=== PATIENT | female | born 1945 | race Caucasian/White ===

== ENCOUNTER 2018-12-22 18:56 | Inpatient (IN) ==
[2018-12-22] MEDS ORDERED: ASPIRIN 325 MG TABLET PO STA (19:36)
[2018-12-22] MEDS ORDERED: DILTIAZEM 50 MG/10 ML VIAL IV STA (19:36)
[2018-12-22] MEDS ORDERED: ENOXAPARIN 100 MG/ML SYRINGE SUBCUT STA (19:37)
[2018-12-22] MEDS ORDERED: dilTIAZem Drip 125 MG/125 ML PREMIX IV SCH ×2 (20:00→22:00)
[2018-12-22 20:08] LABS: Basophils # 0.1 10*3/uL (0.0-0.2); Basophils % 0.7 % (0.0-0.8); Eosinophils # 0.2 10*3/uL (0.0-0.87); Eosinophils % 2.3 % (0.00-10.9); Hematocrit 36.6 VOL% (35.7-47.0); Hemoglobin 11.9 GM/DL (12.0-16.0); Immature Granulocytes % 0.3 %; Immature Granulocytes Absolute 0.02 #; Lymphocytes # 2.6 10*3/uL (1.4-4.0); Lymphocytes % 37.4 % (21.3-54.2); Mean Corpuscular HGB Conc 32.5 GM/DL (32-36); Mean Corpuscular Hemoglobin 30 PG (27-34); Mean Corpuscular Volume 92.9 FL (87-102); Monocytes # 0.6 10*3/uL (0.11-0.8); Monocytes % 8.6 % (1.7-12.7); Neutrophils # 3.5 10*3/uL (1.4-7.4); Neutrophils % 50.7 % (38.7-73.9); Platelet Count 230 T/CUMM (130-400); Red Blood Count 3.94 MC/CUMM (3.8-5.5); Red Cell Distribution Width 13.8 % (9.3-17.3); White Blood Count 6.9 T/CUMM (4-12)
[2018-12-22 20:15] LABS: Apearance,Urine CLEAR (Clear); Bilirubin,Urine Negative (Negative); Blood, Urine Small mg/dL (Negative); Glucose,Urine (UA) Negative (Negative); Ketones,Urine Negative (Negative); Mucus,Urine Occasional /LPF (Occasional); Nitrite,Urine Negative (Negative); Protein,Urine Negative; RBC,Urine 3 /HPF (0-4); Squamous Epithelial Cell,Urine Occasional /HPF (0-10); Urine Color Yellow (Yellow); Urine Specific Gravity 1.025 (1.001-1.035); WBC,Urine 13 /HPF (0-6)
[2018-12-22 20:17] LABS: PT Patient Result 11.1 SECS
[2018-12-22] MEDS ORDERED: cefTRIAXone 1,000 MG in SODIUM CHLORIDE 0.9% 100 ML IV STA (20:19)
[2018-12-22 20:29] LABS: Albumin 3.3 G/DL (3.4-5.0); Bilirubin,Total 0.5 MG/DL (0.2-1.0); Calcium 8.8 MG/DL (8.5-10.1); Osmolality,Calculated 277.7 MOS/KG (273-304); Potassium 4.2 MMOL/L (3.5-5.1); Thyroid Stimulating Hormone 3.27 uIU/ml (0.358-3.74); Total Protein 6.8 G/DL (6.4-8.3)
[2018-12-22] MEDS ORDERED: ONDANSETRON 4 MG/2 ML VIAL IV PRN (21:51)
[2018-12-22] MEDS ORDERED: NICOTINE 21 MG/24 HR PATCH TRANSDERM PRN (21:51)
[2018-12-22] MEDS ORDERED: MAGNESIUM SULF RIDER 4 GM in PREMIX 1 EACH IV PRN (21:51)
[2018-12-22] MEDS ORDERED: MORPHINE 4 MG/1 ML VIAL IV PRN (21:51)
[2018-12-22] MEDS ORDERED: MAGNESIUM SULF RIDER 2 GM in PREMIX 1 EACH IV PRN (21:51)
[2018-12-22] MEDS ORDERED: ACETAMINOPHEN 325 MG TABLET PO PRN (21:51)
[2018-12-22] MEDS ORDERED: diphenhydrAMINE CAP 25 MG CAPSULE PO PRN (21:51)
[2018-12-22] MEDS ORDERED: BISACODYL 5 MG TABLET PO PRN (21:51)
[2018-12-22] MEDS ORDERED: POTASSIUM CHLORIDE 20 MEQ TABLET PO PRN (21:51)
[2018-12-22 23:37] LABS: Risk Ratio 2.09; VLDL CHOLESTEROL 14.4 MG/DL
[2018-12-23] MEDS ORDERED: ASPIRIN 325 MG TABLET PO SCH (09:00)
[2018-12-23] MEDS ORDERED: ENOXAPARIN 40 MG/0.4 ML SYRINGE SUBCUT SCH (09:00)
[2018-12-23] MEDS: PANTOPRAZOLE 40 MG TABLET PO SCH (10:28)
[2018-12-23] MEDS: DILTIAZEM 30 MG TABLET PO SCH ×4 (10:28→21:05)
[2018-12-23] MEDS ORDERED: FUROSEMIDE 20 MG/2 ML VIAL IV SCH (16:00)
[2018-12-23] MEDS ORDERED: cefTRIAXone 1,000 MG in SYRINGE 1 EACH IV SCH (21:00)
[2018-12-23] MEDS: APIXABAN 5 MG TABLET PO SCH (21:06)
[2018-12-24 04:40] LABS: Basophils % 0.7 % (0.0-0.8); Eosinophils # 0.2 10*3/uL (0.0-0.87); Eosinophils % 4.4 % (0.00-10.9); Hematocrit 34.2 VOL% (35.7-47.0); Hemoglobin 11.3 GM/DL (12.0-16.0); Immature Granulocytes % 0.4 %; Immature Granulocytes Absolute 0.02 #; Lymphocytes # 2.1 10*3/uL (1.4-4.0); Mean Corpuscular Hemoglobin 31 PG (27-34); Mean Corpuscular Volume 92.4 FL (87-102); Mean Platelet Volume 10.7 FL (9.6-12.0); Monocytes # 0.5 10*3/uL (0.11-0.8); Neutrophils # 2.5 10*3/uL (1.4-7.4); Neutrophils % 46.5 % (38.7-73.9); Platelet Count 206 T/CUMM (130-400); White Blood Count 5.4 T/CUMM (4-12)
[2018-12-24 05:02] LABS: Calcium 8.4 MG/DL (8.5-10.1); Potassium 3.7 MMOL/L (3.5-5.1)
[2018-12-24] MEDS ORDERED: ASPIRIN EC 81 MG TABLET PO SCH (09:00)
[2018-12-24] MEDS ORDERED: DILTIAZEM CD 240 MG CAPSULE PO SCH (09:30)
[2018-12-24] MEDS ORDERED: METOPROLOL TARTRATE 25 MG TABLET PO SCH (09:30)
[2018-12-24] MEDS: PANTOPRAZOLE 40 MG TABLET PO SCH (09:31)
[2018-12-24] MEDS: APIXABAN 5 MG TABLET PO SCH (09:32)
[2018-12-24 10:32] LABS: Albumin 3.1 G/DL (3.4-5.0); Bilirubin,Direct 0.12 MG/DL (0.0-0.20); Bilirubin,Indirect 0.3 MG/DL (0.0-1.0); Bilirubin,Total 0.4 MG/DL (0.2-1.0); Total Protein 6.2 G/DL (6.4-8.3)
[2018-12-24 11:33] VITALS: BP 129/68
[2018-12-25] MEDS ORDERED: METOPROLOL SUCCINATE XL 25 MG TABLET PO SCH (09:00)
== END 2018-12-24 15:07 | disposition home or self-care (01) | DRG 308 ==
LOC: N.ED 18:56 → SUATTDRO 21:51 → N.EDINP 21:51 → N.TELEN 22:45
PROVIDERS: ADMIT Internal Medicine; ATTEND Hospitalist